=== PATIENT | male | born 2000 | race American Indian/Alaskan Native ===

== ENCOUNTER 2021-03-28 15:11 | Emergency (ER) | payer MEDICAID ==
[2021-03-28] MEDS ORDERED: IBUPROFEN 600 MG TAB PO ONE (17:07)
[2021-03-28] MEDS ORDERED: HYDROcodone/ACETAMINOPHEN 5-325 MG TAB PO ONE (17:07)
[2021-03-28] MEDS ORDERED: ONDANSETRON 4 MG ODT TAB PO ONE (17:07)
[2021-03-28 17:08] VITALS: BP 146/91
--- NOTE | 2021-03-28 18:06 | XRay Report ---
CLINICAL DATA: Pain - injury TECHNICAL DATA: AP internal, AP external, and Y views were obtained of the shoulder. FINDINGS: There is no acute fracture. The glenoid fossa humeral head articulation is normal. There is no acromi oclavicular joint widening or offset. The coracoclavicular distance is normal. There are no significa nt degenerative changes. IMPRESSION: No acute radiographic abnormality. Signer Name: Priyank Owens MD Signed: 03/28/2021 6:01 PM Workstation Name: [id number]
--- NOTE | 2021-03-28 18:07 | XRay Report ---
CLINICAL DATA: Pain - injury TECHNICAL DATA: Two views were obtained, AP and lateral FINDINGS: Transverse fracture with overriding and angulation mid distal shaft of the radius and ulnar. The vis ualized joint spaces are normal. IMPRESSION: Fractures of the ulnar and radius with overriding and angulation Signer Name: Priyank Owens MD Signed: 03/28/2021 6:02 PM Workstation Name: [facility]
--- NOTE | 2021-03-28 19:40 | Emergency Department Report ---
ED Upper Extremity Inj HPI - General Chief Complaint: Extremity Injury, Upper Stated Complaint: LT ARM INJURY Source: patient Mode of arrival: Ambulatory Limitations: No Limitations - History of Present Illness Initial Comments: Per mother, patient is a 20-year-old -L[place] male with a history of seizures who presents to the ED with complaint of severe left forearm pain and swelling with mild deformity and left shoulder pain after he fell down and hit his left forearm against a piece of furniture when having a seizure 2 days ago. Mother states the patient is unable to perform any active range of motion of the left forearm because of severe pain. Mother states the patient did not hit his head during the seizure episode but that the left forearm and wrist hit a piece of furniture in the house. Mother states that the patient has not had any seizures since that incident occurred, neck pain, chest pain, shortness of breath, abdominal pain, dizziness, syncope, change in vision, loss of consciousness, numbness and tingling or weakness of left arm. MD Complaint: Injury to:: left, forearm (pain, swelling) -: Sudden, days(s) (2) Other Extremity Injury: Wrist: Left (pain) Handedness: right Place: home Severity scale (0 -10): 8 Improves With: none Worsens With: movement of extremity Context: fall, direct blow, injury Associated Symptoms: denies other symptoms. denies: weakness, numbness, neck pain, suspects foreign body, nausea/vomiting, heard/felt popping sensat Treatments Prior to Arrival: NSAIDS - Related Data Previous Rx's Medication Instructions Recorded Last Taken Type HYDROcodone/APAP 5-325 [[place] 1 each PO Q6HR PRN #12 tablet 03/28/21 Unknown Rx 5/325] Ibuprofen [Motrin] 600 mg PO Q8H PRN #30 tablet 03/28/21 Unknown Rx Allergies Allergy/AdvReac Type Severity Reaction Status Date / Time No Known Allergies Allergy Verified 03/28/21 17:31 ED Review of Systems ROS: Stated complaint: LT ARM INJURY Other details as noted in HPI Constitutional: denies: chills, fever Eyes: denies: eye pain, eye discharge, vision change ENT: denies: ear pain, throat pain Respiratory: denies: cough, shortness of breath, wheezing Cardiovascular: denies: chest pain, palpitations Endocrine: no symptoms reported Gastrointestinal: denies: abdominal pain, nausea, diarrhea Genitourinary: denies: urgency, dysuria Musculoskeletal: joint swelling (Left forearm swelling and pain), arthralgia (Left forearm pain and swelling), other (Left shoulder pain). denies: back pain Skin: denies: rash, lesions Neurological: denies: headache, weakness, paresthesias Psychiatric: denies: anxiety, depression Hematological/Lymphatic: denies: easy bleeding, easy bruising ED Past Medical Hx - Past Medical History Hx Seizures: Yes Additional medical history: Autism - Surgical History Past Surgical History?: No - Social History Smoking Status: Never Smoker Substance Use Type: None - Medications Home Medications: Home Medications Medication Instructions Recorded Confirmed Last Taken Type HYDROcodone/APAP 5-325 [[place] 1 each PO Q6HR PRN #12 tablet 03/28/21 Unknown Rx 5/325] Ibuprofen [Motrin] 600 mg PO Q8H PRN #30 tablet 03/28/21 Unknown Rx ED Physical Exam - General Limitations: No Limitations General appearance: alert, in no apparent distress - Head Head exam: Present: atraumatic, normocephalic, normal inspection - Eye Eye exam: Present: normal appearance, PERRL, EOMI Pupils: Present: normal accommodation - ENT ENT exam: Present: normal exam, normal orophraynx, mucous membranes moist, TM's normal bilaterally, normal external ear exam - Neck Neck exam: Present: normal inspection, full ROM. Absent: tenderness, lymphadenopathy - Respiratory Respiratory exam: Present: normal lung sounds bilaterally. Absent: respiratory distress, wheezes, rales, rhonchi, chest wall tenderness, accessory muscle use - Cardiovascular Cardiovascular Exam: Present: regular rate, normal rhythm, normal heart sounds. Absent: systolic murmur, diastolic murmur, rubs, gallop - GI/Abdominal GI/Abdominal exam: Present: soft, normal bowel sounds. Absent: tenderness, guarding, rebound, hyperactive bowel sounds, hypoactive bowel sounds - Extremities Exam Extremities exam: Present: normal inspection, tenderness (Severe left forearm tenderness with mild swelling and deformity and limited range of motion due to pain), normal capillary refill. Absent: full ROM (Limited range of motion of left forearm due to pain), calf tenderness - Back Exam Back exam: Present: normal inspection, full ROM. Absent: tenderness, CVA tender ness (R), CVA tenderness (L), muscle spasm, paraspinal tenderness, vertebral tenderness - Neurological Exam Neurological exam: Present: alert, oriented X3, CN II-XII intact, normal gait - Psychiatric Psychiatric exam: Present: normal affect, normal mood - Skin Skin exam: Present: warm, dry, intact, normal color. Absent: rash ED Course Vital Signs 03/28/21 03/28/21 16:58 17:27 Temperature 97.3 F L Pulse Rate 82 Respiratory 18 18 Rate Blood Pressure 146/91 O2 Sat by Pulse 99 Oximetry ED Medical Decision Making - Radiology Data Radiology results: report reviewed, image reviewed [facility] [address] [place] [address] XRay Report Signed Patient: MARCELLO ROGEL MR#: [id number] 7 : 2000 Acct:[id number] Age/Sex: 20 / M ADM Date: 03/28/21 Loc: ED Attending Dr: Ordering Physician: STEVEN CANALES Date of Service: 03/28/21 Procedure(s): XR forearm LT Accession Number(s): [id number] cc: STEVEN CANALES Fluoro Time In Minutes: CLINICAL DATA: Pain - injury TECHNICAL DATA: Two views were obtained, AP and lateral FINDINGS: Transverse fracture with overriding and angulation mid distal shaft of the radius and ulnar. The visualized joint spaces are normal. IMPRESSION: Fractures of the ulnar and radius with overriding and angulation Signer Name: Priyank Owens MD Signed: 03/28/2021 6:02 PM Workstation Name: [id number] Transcribed By: WG Dictated By: Priyank Owens MD Electronically Authenticated By: Priyank Owens MD Signed Date/Time: 03/28/211801 DD/ 00 TD/TT: ----- [facility] [address] [place] [address] XRay Report Signed Patient: MARCELLO ROGEL MR#: [id number] 7 : 2000 Acct:[id number] Age/Sex: 20 / M ADM Date: 03/28/21 Loc: ED Attending Dr: Ordering Physician: STEVEN CANALES Date of Service: 03/28/21 Procedure(s): XR shoulder 2+V LT Accession Number(s): [id number] cc: STEVEN CANALES Fluoro Time In Minutes: CLINICAL DATA: Pain - injury TECHNICAL DATA: AP internal, AP external, and Y views were obtained of the shoulder. FINDINGS: There is no acute fracture. The glenoid fossa humeral head articulation is normal. There is no acromioclavicular joint widening or offset. The coracoclavicular distance is normal. There are no significant degenerative changes. IMPRESSION: No acute radiographic abnormality. Signer Name: Priyank Owens MD Signed: 03/28/2021 6:01 PM Workstation Name: [id number] Transcribed By: WG Dictated By: Priyank Owens MD Electronically Authenticated By: Priyank Owens MD Signed Date/Time: 03/28/211800 DD/ 00 TD/TT: - Medical Decision Making This is a 20-year-old -L[place] male with a history of seizures who presents to the ED with complaint of severe left forearm pain and swelling with mild deformity and left shoulder pain after he fell down and hit his left forearm against a piece of furniture when having a seizure 2 days ago. Mother states the patient is unable to perform any active range of motion of the left forearm because of severe pain. Mother states the patient did not hit his head during the seizure episode but that the left forearm and wrist hit a piece of furniture in the house. In the ED, patient is alert and oriented x3 and is not in any distress but appears to be in pain. Patient was treated for pain in the ED and left forearm x-ray showed transverse fracture with overriding and angulation mid distal shaft of the radius and ulnar. The visualized joint spaces are normal. Left shoulder x-ray showed no acute fractures or subluxations. Patient's left forearm fracture was splinted with a posterior long-arm splint. On reevaluation, patient is neurovascularly intact on the left forearm and left wrist. Patient was therefore discharged home on pain medications and given a referral to the orthopedic surgeon Dr. Pal for further evaluation. Patient was advised return to the ED immediately if symptoms get worse. - Differential Diagnosis Forearm fracture; wrist fracture; shoulder fracture; shoulder sprain; Critical care attestation.: If time is entered above; I have spent that time in minutes in the direct care of this critically ill patient, excluding procedure time. ED Disposition Clinical Impression: Closed left forearm fracture Qualifiers: Encounter type: initial encounter Qualified Code(s): S52.92XA - Unspecified fracture of left forearm, initial encounter for closed fracture Sprain of left shoulder Qualifiers: Encounter type: initial encounter Shoulder sprain type: unspecified sprain Q ualified Code(s): S43.402A - Unspecified sprain of left shoulder joint, initial encounter Disposition: TO HOME OR SELFCARE Is pt being admited?: No Does the pt Need Aspirin: No Condition: Stable Instructions: Cast or Splint Care, Adult, [id number], Forearm Fracture Rehab- SportsMed, Shoulder Sprain Additional Instructions: Left forearm x-ray shows displaced midshaft ulna and radius fractures. Therefore take medications as needed for pain, drink plenty of fluids and follow-up with the orthopedic surgeon Dr. Pal in 3 to 5 days for reevaluation. Contact Dr. Pal's office on Wednesday, April 06 to schedule a follow-up appointment. Return to the ED immediately if symptoms get worse. Prescriptions: Ibuprofen [Motrin] 600 mg PO Q8H PRN #30 tablet PRN Reason: Pain HYDROcodone/APAP 5-325 [[place] 5/325] 1 each PO Q6HR PRN #12 tablet PRN Reason: Pain Referrals: NAY PAL MD [Staff Physician] - 3-5 Days Time of Disposition: 21:04 Print Language: MONGOLIAN
== END 2021-03-28 21:21 | disposition home or self-care (01) ==
LOC: ED 15:11
DX: S52.302A Unspecified fracture of shaft of left radius, initial encounter for closed fracture (principal); S52.202A Unspecified fracture of shaft of left ulna, initial encounter for closed fracture; S43.402A Unspecified sprain of left shoulder joint, initial encounter; R56.9 Unspecified convulsions; Z79.1 Long term (current) use of non-steroidal anti-inflammatories (NSAID); Z79.899 Other long term (current) drug therapy; W01.0XXA Fall on same level from slipping, tripping and stumbling without subsequent striking against object, initial encounter; Y93.89 Activity, other specified; Y92.89 Other specified places as the place of occurrence of the external cause; Y99.8 Other external cause status
CPT/HCPCS: Q0162

== ENCOUNTER 2021-04-17 10:36 | Day surgery (SDC) | payer MEDICAID ==
[~2021-04-17 10:36] MED LIST: KETAMINE/STERILE WATER 50 MG/ML SYRINGE ONE; KETOROLAC 30 MG/1 ML INJ ONE; LIDOCAINE MPF (2%) 20 MG/1 ML VIAL 5 ML ONE; ONDANSETRON 4 MG/2 ML INJ ONE; ceFAZolin/STERILE WATER 2 GM/20 ML SYRINGE IV NR; dexAMETHasone 20 MG/5 ML VIAL ONE; propofoL 200 MG/20 ML VIAL IV ONE
[2021-04-17] MEDS ORDERED: ONDANSETRON 4 MG/2 ML INJ IV PRN (11:07)
[2021-04-17] MEDS ORDERED: HYDROmorphone 1 MG/1 ML INJ IV PRN ×2 (11:07)
--- NOTE | 2021-04-17 11:08 | Anesthesia Day of Surgery ---
Anesthesia Day of Surgery - Day of Surgery Patient Examined: Yes Patient H&P Reviewed: Yes Patient is NPO: Yes
[2021-04-17] MEDS ORDERED: ACETAMINOPHEN 500 MG TAB PO NR (11:14)
--- NOTE | 2021-04-17 11:14 | Anesthesia Consultation ---
Anesthesia Consult and Med Hx - Airway Anesthetic Teeth Evaluation: Chipped ROM Head & Neck: Adequate Mental/Hyoid Distance: Adequate Mallampati Class: Class II Intubation Access Assessment: Good - Pre-Operative Health Status ASA Pre-Surgery Classification: ASA3 Proposed Anesthetic Plan: General - Pulmonary Hx Smoking: No Hx Sleep Apnea: No (IDALMIS PRE SCREEN LOW RISK) - Cardiovascular System Hx Hypertension: No - Central Nervous System Hx Seizures: Yes (Q 3 MONTHS EVEN ON MEDS ( LAST SEIZURE 03/26/2021)) Hx Psychiatric Problems: (AUTISM) - Hematic Hx Anemia: No - Other Systems Hx Cancer: No - Additional Comments Anesthesia Medical History Comments: Mother present at bedside-decline PNB
[2021-04-17] MEDS ORDERED: LACTATED RINGERS 1,000 ML IV SCH (11:15)
[2021-04-17] MEDS ORDERED: BUPIVACAINE-EPINEPHRINE/PF 0.25%-1:200,000 (30 ML) VIAL INFILTRATI ONE (11:35)
[2021-04-17] MEDS ORDERED: NEOMY 40 MG/POLYMYXIN B 200,000 UNITS/ML (GU) AMPULE IR ONE (11:36)
[2021-04-17] MEDS ORDERED: fentaNYL 100 MCG/2 ML INJ ONE (11:54)
[2021-04-17] MEDS ORDERED: MIDAZOLAM 2 MG/2 ML INJ IV NR (12:00)
[2021-04-17] MEDS ORDERED: HYDROmorphone 1 MG/1 ML INJ ONE (12:46)
[2021-04-17] MEDS ORDERED: SODIUM CHLORIDE 0.9% IRR 1,500 ML BOTTLE IR ONE (13:55)
[2021-04-17] MEDS ORDERED: LACTATED RINGERS 1,000 ML ONE (14:49)
[2021-04-17] MEDS ORDERED: GLYCOPYRROLATE 0.4 MG/2 ML INJ ONE (14:49)
[2021-04-17] MEDS ORDERED: NEOSTIGMINE 10MG/10 ML INJ MDV ONE (14:49)
--- NOTE | 2021-04-17 15:24 | Procedure Note ---
Date of procedure: 04/17/21 Pre-op diagnosis: Displaced left ulnar and radius fracture Post-op diagnosis: same Procedure: Open reduction internal fixation left ulnar and radius Procedure The patient was brought to the OR after being given a scalene nerve block for postop pain management. He was placed on the OR table in a supine position following induction with mask anesthesia the patient's left upper extremity was prepped and draped in the usual sterile manner. A timeout procedure was done to identify the patient and the correct operative site. The arm was exsanguinated followed by inflation of the pneumatic tourniquet to 250 mmHg. A midline volar incision was made over the mid forearm this was taken down sharply through skin and subcutaneous the digit radius fracture was approached first using the flexor carpi radialis tendon as a landmark the incision was carried just medial to this structure down through the muscle the proximal fragment was seen and identified as well as the distal fragment using 2 bone clamps the radius fractures were manipulated into a reduced position next a 7-hole locked plate was applied with screws of various lengths next the ulnar fracture was approached after a muscle- splitting the fracture fragments were identified and again using the reduction clamps the ulnar fragments were manipulated and reduced and held with a 6-hole locking plate again screws of various lengths were applied C-arm fluoroscopy was then used to evaluate the reduction and placement of the hardware. The wound was then copiously irrigated and was closed in a standard routine fashion patient tolerated procedure and there were no complications Anesthesia: MAC, regional Surgeon: NAY RAMIREZ (Donnell Live M.D. 1st assist) Estimated blood loss: minimal Pathology: none Condition: stable Disposition: PACU
--- NOTE | 2021-04-17 15:37 | Post Anesthesia Evaluation ---
- Post Anesthesia Evaluation Patient Participated: Yes Airway Patent: Yes Stable Respiratory Function: Yes Nausea/Vomiting: No Temp > 96.8F: Yes Pain Manageable: Yes Adequeate Hydration: Yes Anesthesia Complications: No Block Receding Appropriately: Not Applicable Patient on Ventilator: No
--- NOTE | 2021-04-17 16:43 | XRay Report ---
XR FOREARM LT INDICATION / CLINICAL INFORMATION: LT FOREARM FX/ORIF LT FOREARM. COMPARISON: None available. FINDINGS: Metallic plates and screws transfix fractures of the distal radial and ulnar shafts. No complication of surgery is seen. Fluoroscopy time: 16 seconds. Fluoroscopic images: 2. Signer Name: Gregory Nelson MD Signed: 04/17/2021 4:39 PM Workstation Name: [id number]
[2021-04-17 17:21] VITALS: BP 148/75
== END 2021-04-17 17:15 | disposition home or self-care (01) ==
LOC: OR 10:36
PROVIDERS: ATTEND Orthopaedic Surgery
DX: S52.302A Unspecified fracture of shaft of left radius, initial encounter for closed fracture (principal); S52.202A Unspecified fracture of shaft of left ulna, initial encounter for closed fracture; Z98.890 Other specified postprocedural states; Z79.899 Other long term (current) drug therapy; W19.XXXA Unspecified fall, initial encounter; Y93.89 Activity, other specified; Y92.89 Other specified places as the place of occurrence of the external cause; Y99.8 Other external cause status
CPT/HCPCS: 25575; 64415; 73090; C1713; J0690; J1100; J1170; J1885; J2250; J2405; J2704; J2710; J3010; J3490; J7120